=== PATIENT | female | born 1990 | race Two or more races ===

== ENCOUNTER 2021-08-12 14:25 | Emergency (ER) | payer OTHER ==
[~2021-08-12] VITALS: Ht 165.1 cm; Wt 63.5 kg
[~2021-08-12 14:25] MED LIST: PRENATAL CAPLE1 EACH PO; ZOFRAN 2 MG4 MG/2 ML
== END 2021-08-12 17:56 | disposition home or self-care (01) ==
LOC: ER 14:25
DX: M94.0 Chondrocostal junction syndrome [Tietze] (principal); Z88.6 Allergy status to analgesic agent

== ENCOUNTER 2021-09-03 16:32 | Emergency (ER) | payer OTHER ==
[~2021-09-03] VITALS: Ht 165.1 cm; Wt 63.5 kg
== END 2021-09-03 20:49 | disposition home or self-care (01) ==
LOC: ER 16:32
DX: N83.292 Other ovarian cyst, left side (principal); N83.291 Other ovarian cyst, right side; N93.8 Other specified abnormal uterine and vaginal bleeding; Z88.6 Allergy status to analgesic agent

== ENCOUNTER 2022-10-17 13:35 | Emergency (ER) | payer OTHER ==
[~2022-10-17] VITALS: Ht 165.1 cm; Wt 65.8 kg
== END 2022-10-17 20:13 | disposition home or self-care (01) ==
LOC: ER 13:35
DX: S99.821A Other specified injuries of right foot, initial encounter (principal); X58.XXXA Exposure to other specified factors, initial encounter; Y93.89 Activity, other specified; Y92.89 Other specified places as the place of occurrence of the external cause; Z88.6 Allergy status to analgesic agent